=== PATIENT | female | born 1950 | race Caucasian/White ===

== ENCOUNTER 2016-09-08 08:45 | Emergency (ER) | payer MEDICAID ==
[~2016-09-08] VITALS: Ht 152.4 cm; Wt 96.0 kg
[~2016-09-08 08:45] MED LIST: ALBU1.25 NEB; ASPI-496 PO; DOXY100T PO; LISI-167 PO; PRED20TA PO
[2016-09-08 08:53] VITALS: BP 156/74
[2016-09-08 11:46] LABS: BLOOD UREA NITROGEN 15 mg/dL (7-18)
== END 2016-09-08 14:02 | disposition home or self-care (01) ==
LOC: ED 11:42
DX: I87.1 Compression of vein (principal); E88.09 Other disorders of plasma-protein metabolism, not elsewhere classified; J44.9 Chronic obstructive pulmonary disease, unspecified; Z79.52 Long term (current) use of systemic steroids
CPT/HCPCS: 36415; 71010; 80048; 82040; 83880; 85025; 93005; 93970; 99285

== ENCOUNTER 2016-09-14 09:55 | Emergency (ER) | payer MEDICAID ==
[~2016-09-14] VITALS: Ht 152.4 cm; Wt 96.0 kg
[2016-09-14] MEDS ORDERED: SODIUM CHLORIDE 0.9% 1,000ML IVBOLUS ONE (10:30)
[2016-09-14] MEDS ORDERED: SODIUM CHLORIDE FLUSH 10ML SYR IVF ONE (10:30)
[2016-09-14 11:25] LABS: BLOOD UREA NITROGEN 14 mg/dL (7-18)
[2016-09-14 11:26] LABS: DIFF TOTAL CELLS COUNTED 100 CELL DIFF
[2016-09-14 11:27] LABS: ANISOCYTOSIS 1+; VERIFY COUNTS? YES
[2016-09-14 11:28] LABS: POLYCHROMASIA 1+
[2016-09-14 11:30] LABS: ASPARTATE AMINO TRANSFERASE 75 U/L (15-37)
[2016-09-14 11:32] LABS: IS PT STATUS REG ER OR PRE ER? YES
[2016-09-14 13:34] VITALS: BP 119/72
== END 2016-09-14 13:37 | disposition home or self-care (01) ==
LOC: ED 11:33
DX: J44.1 Chronic obstructive pulmonary disease with (acute) exacerbation (principal); D72.829 Elevated white blood cell count, unspecified; I10 Essential (primary) hypertension
CPT/HCPCS: 36415; 71010; 80053; 83605; 83880; 84484; 85025; 87040; 93005; 96360; 99285; J7030

== ENCOUNTER 2017-04-12 05:41 | Emergency (ER) | payer MEDICARE, MEDICAID ==
[~2017-04-12] VITALS: Ht 152.4 cm; Wt 95.3 kg
[2017-04-12] MEDS ORDERED: FURO20TA3 PO (06:24)
[2017-04-12] MEDS ORDERED: POTA20PA25 PO (06:25)
[2017-04-12 06:57] LABS: ALBUMIN 2.8 g/dL (3.4-5.0); ANION GAP 7 mmol/L (5-15); CALCIUM 9.5 mg/dL (8.5-10.1); CHLORIDE 103 mmol/L (98-107); CREATININE 0.91 mg/dL (0.55-1.02)
[2017-04-12 07:05] LABS: BASOPHILS # (AUTO) 0.06 x10^3/uL (0-0.1); BASOPHILS % (AUTO) 0 % (0-1); EOSINOPHILS # (AUTO) 0.14 x10^3/uL (0-0.4); EOSINOPHILS % (AUTO) 1 % (1-7); LYMPHOCYTES # (AUTO) 3.88 x10^3/uL (1-3.4); LYMPHOCYTES % (AUTO) 24 % (22-44); MD NO; MEAN CORPUSCULAR HEMOGLOBIN 30.4 pg (27.0-34.8); MEAN PLATELET VOLUME 9.3 fL (7.4-10.4); MONOCYTES # (AUTO) 0.76 x10^3/uL (0.2-0.8); MONOCYTES % (AUTO) 5 % (2-9); NEUTROPHILS # (AUTO) 11.59 x10^3/uL (1.8-6.8); NEUTROPHILS % (AUTO) 71 % (42-75); PLATELET COUNT 218 x10^3/uL (130-400); RED BLOOD COUNT 5.59 x10^6/uL (3.82-5.3); RED CELL DISTRIBUTION WIDTH 16.4 % (9.6-15.2)
[2017-04-12 07:59] VITALS: BP 169/95
== END 2017-04-12 08:25 | disposition home or self-care (01) ==
LOC: ED 06:31
DX: R60.0 Localized edema (principal); I10 Essential (primary) hypertension; J44.9 Chronic obstructive pulmonary disease, unspecified
CPT/HCPCS: 36415; 80048; 82040; 85025; 93005; 99285

== ENCOUNTER 2017-09-09 23:39 | Inpatient (IN) | payer MEDICARE, MEDICAID ==
[~2017-09-09] VITALS: Ht 152.4 cm; Wt 98.5 kg
[~2017-09-09 23:39] MED LIST changes: +FURO20TA3 PO; +POTA20PA25 PO
[2017-09-10] MEDS ORDERED: IPRATROPIUM 0.5 MG/2.5 ML INHA NPPB ONE
[2017-09-10] MEDS ORDERED: ALBUTEROL SULFATE 2.5 MG/3 ML NPPB ONE
[2017-09-10] MEDS ORDERED: SODIUM CHLORIDE FLUSH 10ML SYR IVF ONE
[2017-09-10] MEDS ORDERED: ALBUTEROL/IPRATROPIUM 2.5MG/0.5MG, 3 ML ONE ×3 (00:02→16:27)
[2017-09-10 00:11] LABS: BASOPHILS # (AUTO) 0.06 x10^3/uL (0-0.1); BASOPHILS % (AUTO) 1 % (0-1); EOSINOPHILS # (AUTO) 0.34 x10^3/uL (0-0.4); EOSINOPHILS % (AUTO) 3 % (1-7); LYMPHOCYTES # (AUTO) 3.52 x10^3/uL (1-3.4); LYMPHOCYTES % (AUTO) 26 % (22-44); MD NO; MEAN CORPUSCULAR HEMOGLOBIN 30.4 pg (27.0-34.8); MEAN CORPUSCULAR HGB CONC 33.2 g/dL (32.4-35.8); MEAN CORPUSCULAR VOLUME 91.5 fL (80-100); MEAN PLATELET VOLUME 9.1 fL (7.4-10.4); MONOCYTES # (AUTO) 0.72 x10^3/uL (0.2-0.8); MONOCYTES % (AUTO) 5 % (2-9); NEUTROPHILS # (AUTO) 9.08 x10^3/uL (1.8-6.8); NEUTROPHILS % (AUTO) 66 % (42-75); PLATELET COUNT 241 x10^3/uL (130-400); RED BLOOD COUNT 5.58 x10^6/uL (3.82-5.3); RED CELL DISTRIBUTION WIDTH 15.6 % (9.6-15.2)
[2017-09-10] MEDS ORDERED: ALBUTEROL/IPRATROPIUM 2.5MG/0.5MG, 3 ML NPPB SCH ×2 (00:30→07:00)
[2017-09-10 00:50] LABS: ALANINE AMINOTRANSFERASE 28 U/L (12-78); ALBUMIN 2.8 g/dL (3.4-5.0); ANION GAP 12 mmol/L (5-15); CALCIUM 9.6 mg/dL (8.5-10.1); CHLORIDE 103 mmol/L (98-107); CREATININE 0.86 mg/dL (0.55-1.02)
[2017-09-10 00:54] LABS: ALKALINE PHOSPHATASE 143 U/L (45-117); BILIRUBIN,TOTAL 0.3 mg/dL (0.2-1.0); TOTAL PROTEIN 6.9 g/dL (6.4-8.2); TROPONIN I < 0.015 ng/mL (0.000-0.045)
[2017-09-10] MEDS ORDERED: SODIUM CHLORIDE FLUSH 10ML SYR IVF PRN (02:00)
[2017-09-10] MEDS ORDERED: ALBUTEROL/IPRATROPIUM 2.5MG/0.5MG, 3 ML NPPB PRN (02:30)
[2017-09-10] MEDS ORDERED: methylPREDNISolone SOD SUCC 125 MG/2 ML ONE (02:41)
[2017-09-10] MEDS ORDERED: ENOXAPARIN 40 MG/0.4 ML ONE (02:41)
[2017-09-10] MEDS: methylPREDNISolone SOD SUCC 125 MG/2 ML IVPush SCH ×3 (02:45→21:16)
[2017-09-10] MEDS: ENOXAPARIN 40 MG/0.4 ML SQ SCH (02:46)
[2017-09-10 02:56] VITALS: BP 131/95
[2017-09-10] MEDS ORDERED: morphine SULFATE 10 MG/ML, 1ML IVPush PRN (03:00)
[2017-09-10] MEDS ORDERED: ENALAPRILAT 1.25 MG/ML, 2ML IVPush PRN (03:00)
[2017-09-10] MEDS ORDERED: POLYETHYLENE GLYCOL 17 GM PACKET PO PRN (03:00)
[2017-09-10] MEDS ORDERED: LABETALOL 5MG/ML, 20ML IVPush PRN (03:00)
[2017-09-10] MEDS ORDERED: PROMETHAZINE 25 MG/ML, 1ML IM PRN (03:00)
[2017-09-10] MEDS ORDERED: ONDANSETRON 2MG/ML, 2ML IVPush PRN (03:00)
[2017-09-10] MEDS ORDERED: DOCUSATE 100 MG CAPSULE PO PRN (03:00)
[2017-09-10] MEDS ORDERED: BISACODYL 10 MG SUPP PR PRN (03:00)
[2017-09-10] MEDS ORDERED: OXYcodone IR 5MG TABLET PO PRN (03:00)
[2017-09-10] MEDS ORDERED: ACETAMINOPHEN 325 MG TABLET PO PRN (03:00)
[2017-09-10] MEDS ORDERED: ONDANSETRON ODT 4 MG PO PRN (03:00)
[2017-09-10] MEDS ORDERED: hydrALAzine 20 MG/ML, 1ML IVPush PRN (03:00)
[2017-09-10] MEDS ORDERED: FLUTICASONE/VILANTEROL 200-25MCG/INH INH SCH (03:00)
[2017-09-10 03:09] LABS: FREE T4 (FREE THYROXINE) 0.94 ng/dL (0.76-1.46); THYROID STIMULATING HORMONE 3.09 mIU/L (0.358-3.740)
[2017-09-10 03:53] LABS: HEMOGLOBIN A1C 6.3 % (4.2-6.3)
[2017-09-10 04:27] LABS: CULTURE INDICATED? YES; MICROSCOPIC INDICATED
[2017-09-10 07:08] LABS: TROPONIN I < 0.015 ng/mL (0.000-0.045)
[2017-09-10] MEDS: ALBUTEROL/IPRATROPIUM 2.5MG/0.5MG, 3 ML NPPB SCH ×2 (08:05→12:06)
[2017-09-10 09:17] VITALS: BP 137/83
[2017-09-10] MEDS: ASPIRIN 81 MG TABLET EC PO SCH (09:19)
[2017-09-10] MEDS: POTASSIUM CHLORIDE 20 MEQ PACKET PO SCH (09:19)
[2017-09-10] MEDS: FUROSEMIDE 40 MG TABLET PO SCH (09:19)
[2017-09-10] MEDS: LISINOPRIL 10 MG TABLET PO SCH (09:19)
[2017-09-10] MEDS: FLUTICASONE/VILANTEROL 200-25MCG/INH INH SCH (13:06)
[2017-09-10 13:23] VITALS: BP 146/82
[2017-09-10 13:47] LABS: TROPONIN I < 0.015 ng/mL (0.000-0.045)
[2017-09-10] MEDS: ALBUTEROL/IPRATROPIUM 2.5MG/0.5MG, 3 ML HHN SCH ×2 (16:50→20:00)
[2017-09-10 19:15] VITALS: BP 132/82
[2017-09-10] MEDS ORDERED: FAMOTIDINE 20 MG TABLET ONE (22:30)
[2017-09-11 01:21] VITALS: BP 116/79
[2017-09-11] MEDS: ENOXAPARIN 40 MG/0.4 ML SQ SCH (03:03)
[2017-09-11 06:01] LABS: CHLORIDE 104 mmol/L (98-107)
[2017-09-11 06:03] LABS: BASOPHILS # (AUTO) 0.03 x10^3/uL (0-0.1); BASOPHILS % (AUTO) 0 % (0-1); EOSINOPHILS % (AUTO) 0 % (1-7); LYMPHOCYTES # (AUTO) 1.16 x10^3/uL (1-3.4); LYMPHOCYTES % (AUTO) 7 % (22-44); MD NO; MEAN CORPUSCULAR HEMOGLOBIN 30.2 pg (27.0-34.8); MEAN CORPUSCULAR HGB CONC 32.9 g/dL (32.4-35.8); MEAN CORPUSCULAR VOLUME 91.7 fL (80-100); MEAN PLATELET VOLUME 9.7 fL (7.4-10.4); MONOCYTES # (AUTO) 0.25 x10^3/uL (0.2-0.8); MONOCYTES % (AUTO) 2 % (2-9); NEUTROPHILS # (AUTO) 15.51 x10^3/uL (1.8-6.8); NEUTROPHILS % (AUTO) 92 % (42-75); PLATELET COUNT 226 x10^3/uL (130-400); RED BLOOD COUNT 5.37 x10^6/uL (3.82-5.3); RED CELL DISTRIBUTION WIDTH 16.4 % (9.6-15.2)
[2017-09-11 06:10] LABS: ALANINE AMINOTRANSFERASE 29 U/L (12-78); ALBUMIN 2.5 g/dL (3.4-5.0); ALKALINE PHOSPHATASE 136 U/L (45-117); ANION GAP 8 mmol/L (5-15); BILIRUBIN,TOTAL 0.4 mg/dL (0.2-1.0); CALCIUM 8.9 mg/dL (8.5-10.1); CHOL/HDL RATIO 3.1; CHOLESTEROL, TOTAL 160 mg/dL (140-239); HDL CHOL % 32 % (28-40); HDL CHOLESTEROL (DIRECT) 51 mg/dL (40-60); LDL CHOLESTEROL,CALCULATED 85 mg/dL (54-169); LDL/HDL RATIO 1.7 (0.5-3.0); TOTAL PROTEIN 6.4 g/dL (6.4-8.2); TRIGLYCERIDES 118 mg/dL (50-200); VLDL CHOLESTEROL 24 mg/dL (0-25)
[2017-09-11] MEDS: ALBUTEROL/IPRATROPIUM 2.5MG/0.5MG, 3 ML HHN SCH ×2 (06:31→11:00)
[2017-09-11 08:15] VITALS: BP 117/77
[2017-09-11] MEDS: methylPREDNISolone SOD SUCC 125 MG/2 ML IVPush SCH (09:00)
[2017-09-11] MEDS: LISINOPRIL 10 MG TABLET PO SCH (09:00)
[2017-09-11] MEDS: FLUTICASONE/VILANTEROL 200-25MCG/INH INH SCH (09:00)
[2017-09-11] MEDS: FUROSEMIDE 40 MG TABLET PO SCH (09:00)
[2017-09-11] MEDS: ASPIRIN 81 MG TABLET EC PO SCH (09:00)
[2017-09-11] MEDS: POTASSIUM CHLORIDE 20 MEQ PACKET PO SCH (09:00)
[2017-09-11] MEDS ORDERED: PRED20TA PO (12:30)
== END 2017-09-11 14:54 | disposition home or self-care (01) | DRG 189 ==
LOC: ED 09-10 00:22 → EDIP 09-10 01:50 → 5SO 09-10 03:31 → 4WST 09-11 05:44
PROVIDERS: ADMIT Internal Medicine; ATTEND Internal Medicine
DX: J96.21 Acute and chronic respiratory failure with hypoxia (principal); E44.0 Moderate protein-calorie malnutrition; I50.9 Heart failure, unspecified; I11.0 Hypertensive heart disease with heart failure; D75.1 Secondary polycythemia; J44.1 Chronic obstructive pulmonary disease with (acute) exacerbation; Z68.41 Body mass index [BMI] 40.0-44.9, adult; J98.11 Atelectasis; I87.2 Venous insufficiency (chronic) (peripheral); F17.210 Nicotine dependence, cigarettes, uncomplicated; N64.4 Mastodynia; Z90.710 Acquired absence of both cervix and uterus; Z99.81 Dependence on supplemental oxygen; Z90.49 Acquired absence of other specified parts of digestive tract; Z79.899 Other long term (current) drug therapy
CPT/HCPCS: 36415; 71045; 80053; 80061; 81001; 83036; 83735; 83880; 84439; 84443; 84484; 85025; 87086; 93005; 93306; 94640; 99285; J1650; J7620; J2930

== ENCOUNTER 2018-04-01 15:49 | Inpatient (IN) | payer MEDICARE, MEDICAID ==
[~2018-04-01] VITALS: Ht 154.9 cm; Wt 95.0 kg
[2018-04-01] MEDS ORDERED: SODIUM CHLORIDE FLUSH 10ML SYR IVF ONE (16:00)
[2018-04-01] MEDS ORDERED: methylPREDNISolone SOD SUCC 125 MG/2 ML IVP ONE (16:00)
[2018-04-01] MEDS ORDERED: methylPREDNISolone SOD SUCC 125 MG/2 ML ONE (16:09)
[2018-04-01] MEDS ORDERED: SODIUM CHLORIDE 0.9% 1,000 ML IV ONE (16:17)
[2018-04-01] MEDS ORDERED: SODIUM CHLORIDE 0.9% 1,000ML IVBOLUS ONE (16:30)
[2018-04-01] MEDS ORDERED: BUDE10.2 INH (16:34)
[2018-04-01] MEDS ORDERED: IBUPROFEN 200 MG TABLET ONE (16:41)
[2018-04-01 16:53] LABS: MEAN CORPUSCULAR HEMOGLOBIN 31.2 pg (27.0-34.8); MEAN CORPUSCULAR HGB CONC 33.7 g/dL (32.4-35.8); MEAN CORPUSCULAR VOLUME 92.8 fL (80-100); MEAN PLATELET VOLUME 9.7 fL (7.4-10.4); PLATELET COUNT 292 x10^3/uL (130-400); RED BLOOD COUNT 5.25 x10^6/uL (3.82-5.3); RED CELL DISTRIBUTION WIDTH 14.5 % (9.6-15.2)
[2018-04-01] MEDS ORDERED: AZITHROMYCIN 500 MG in SODIUM CHLORIDE 0.9% 250 ML IVPB ONE (17:00)
[2018-04-01] MEDS ORDERED: CEFTRIAXONE 1,000 MG in SODIUM CHLORIDE 0.9% 50 ML IVPB ONE (17:00)
[2018-04-01] MEDS ORDERED: IBUPROFEN 200 MG TABLET PO ONE (17:00)
[2018-04-01 17:03] LABS: ALANINE AMINOTRANSFERASE 30 U/L (12-78); ALBUMIN 2.3 g/dL (3.4-5.0); ANION GAP 14 mmol/L (5-15); CALCIUM 8.6 mg/dL (8.5-10.1); CHLORIDE 96 mmol/L (98-107); CREATININE 0.91 mg/dL (0.55-1.02)
[2018-04-01 17:06] LABS: INTERNATIONAL NORMALIZED RATIO 1.08 (0.93-1.1); PROTHROMBIN TIME 11.4 Seconds (9.6-11.5)
[2018-04-01] MEDS ORDERED: CEFTRIAXONE PMX 1GM/50ML 50 ML ONE (17:06)
[2018-04-01 17:07] LABS: ALKALINE PHOSPHATASE 182 U/L (45-117); BILIRUBIN,TOTAL 0.5 mg/dL (0.2-1.0); TOTAL PROTEIN 6.7 g/dL (6.4-8.2); TROPONIN I < 0.015 ng/mL (0.000-0.045)
[2018-04-01 17:10] LABS: MD YES
[2018-04-01 17:12] LABS: BAND#(MANUAL) 0.58 x10^3/uL; BANDS%(MANUAL) 3 % (0-7); BASOS#(MANUAL) 0.38 x10^3/uL (0-0.1); BASOS% (MANUAL) 2 % (0-1); LYMPHS% (MANUAL) 12 % (22-44); MONOS#(MANUAL) 0.77 x10^3/uL (0.3-2.7); MONOS% (MANUAL) 4 % (2-9); SEG#(MANUAL) 15.17 x10^3/uL (1.8-6.8); SEGS% (MANUAL) 79 % (42-75)
[2018-04-01 17:14] LABS: <PLATELET ESTIMATE> ADEQUATE; LARGE PLATELETS 1+; POLYCHROMASIA 1+; TOXIC GRAN 1+
[2018-04-01 17:28] LABS: RAPID INFLUENZA A Negative (Negative); RAPID INFLUENZA B Negative (Negative)
[2018-04-01] MEDS ORDERED: ACETAMINOPHEN 325 MG TABLET PO PRN (17:30)
[2018-04-01] MEDS ORDERED: LORazepam 2 MG/ML, 1ML IV PRN ×4 (17:30)
[2018-04-01] MEDS ORDERED: LORazepam 1MG TABLET PO PRN ×2 (17:30)
[2018-04-01] MEDS ORDERED: LORazepam 0.5MG TABLET PO PRN (17:30)
[2018-04-01] MEDS ORDERED: ONDANSETRON 2MG/ML, 2ML IV PRN (17:30)
[2018-04-01] MEDS ORDERED: DOCUSATE 100 MG CAPSULE PO PRN (18:00)
[2018-04-01] MEDS ORDERED: PHARMACY MAY ADJ FOR RENAL FX MC PRN (18:00)
[2018-04-01 18:36] LABS: HEMOGLOBIN A1C 5.8 % (4.2-6.3)
[2018-04-01 19:31] VITALS: BP 95/62
[2018-04-01] MEDS: POTASSIUM CHLORIDE 20 MEQ TAB.ER.PRT PO SCH (19:56)
[2018-04-01] MEDS: THIAMINE 100MG TABLET PO SCH (19:56)
[2018-04-01] MEDS: FOLIC ACID 1 MG TABLET PO SCH (19:56)
[2018-04-01] MEDS: GUAIFENESIN 200 MG TABLET PO SCH ×2 (19:56→21:00)
[2018-04-01] MEDS: SODIUM CHLORIDE 0.9% 1,000 ML IV SCH (19:57)
[2018-04-01] MEDS: ENOXAPARIN 40 MG/0.4 ML SQ SCH (19:57)
[2018-04-01] MEDS: BUDESONIDE 0.5 MG/2 ML INHA NPPB SCH (20:38)
[2018-04-01] MEDS: ALBUTEROL SULFATE 2.5MG/0.5ML NPPB SCH (20:38)
[2018-04-01] MEDS ORDERED: TEMPLATE NON-FORMULARY MED. (Budesonide/Formoterol Fumarate (Symbicort 160-4.5 Mcg Inhaler INH SCH (21:00)
[2018-04-02] MEDS: ALBUTEROL SULFATE 2.5MG/0.5ML NPPB SCH ×4 (01:00→19:55)
[2018-04-02 02:44] VITALS: BP 112/88
[2018-04-02] MEDS ORDERED: ALBUTEROL SULFATE 2.5 MG/3 ML ONE (02:53)
[2018-04-02] MEDS ORDERED: DOXYCYCLINE 100 MG in DEXTROSE 5% 250 ML IV SCH (04:00)
[2018-04-02 04:18] LABS: ANION GAP 8 mmol/L (5-15); CALCIUM 8.4 mg/dL (8.5-10.1); CHLORIDE 99 mmol/L (98-107)
[2018-04-02 04:21] LABS: CREATININE 1.14 mg/dL (0.55-1.02)
[2018-04-02 04:22] LABS: MEAN CORPUSCULAR HEMOGLOBIN 31.7 pg (27.0-34.8); MEAN CORPUSCULAR HGB CONC 33.7 g/dL (32.4-35.8); MEAN CORPUSCULAR VOLUME 94.1 fL (80-100); MEAN PLATELET VOLUME 9.7 fL (7.4-10.4); PLATELET COUNT 256 x10^3/uL (130-400); RED BLOOD COUNT 4.77 x10^6/uL (3.82-5.3); RED CELL DISTRIBUTION WIDTH 14.9 % (9.6-15.2)
[2018-04-02] MEDS: GUAIFENESIN 200 MG TABLET PO SCH ×4 (05:18→21:57)
[2018-04-02] MEDS: SODIUM CHLORIDE 0.9% 1,000 ML IV SCH (05:18)
[2018-04-02] MEDS: DOXYCYCLINE 100 MG in DEXTROSE 5% 250 ML IV SCH ×2 (05:18→17:22)
[2018-04-02 05:45] LABS: MD YES
[2018-04-02 05:50] LABS: BANDS%(MANUAL) 4 % (0-7); LYMPH#(MANUAL) 1.99 x10^3/uL (1-3.4); LYMPHS% (MANUAL) 8 % (22-44); MONOS#(MANUAL) 1.25 x10^3/uL (0.3-2.7); MONOS% (MANUAL) 5 % (2-9); SEG#(MANUAL) 20.67 x10^3/uL (1.8-6.8); SEGS% (MANUAL) 83 % (42-75)
[2018-04-02 05:53] LABS: <PLATELET ESTIMATE> ADEQUATE; LARGE PLATELETS 1+; POLYCHROMASIA 1+
[2018-04-02 07:02] VITALS: BP 107/72
[2018-04-02] MEDS: NICOTINE 21 MG/24 HR PATCH.TD24 TD SCH (07:37)
[2018-04-02] MEDS: POTASSIUM CHLORIDE 20 MEQ TAB.ER.PRT PO SCH (07:38)
[2018-04-02] MEDS: MULTIVITAMINS/MINERALS TABLET PO SCH (07:38)
[2018-04-02] MEDS: FOLIC ACID 1 MG TABLET PO SCH (07:38)
[2018-04-02] MEDS: THIAMINE 100MG TABLET PO SCH (07:38)
[2018-04-02] MEDS: BUDESONIDE 0.5 MG/2 ML INHA NPPB SCH ×2 (08:45→19:55)
[2018-04-02] MEDS ORDERED: LISINOPRIL 10 MG TABLET PO SCH (09:00)
[2018-04-02 09:45] LABS: CLOSTRIDIUM DIFFICILE ANTIGEN POSITIVE; CLOSTRIDIUM DIFFICILE TOXIN NEGATIVE (Negative)
[2018-04-02 13:40] VITALS: BP 113/70
[2018-04-02] MEDS ORDERED: POTASSIUM CHLORIDE 20 MEQ TAB.ER.PRT PO ONE (16:30)
[2018-04-02] MEDS ORDERED: MAGNESIUM SULFATE 1 GM in SODIUM CHLORIDE 0.9% 50 ML IV ONE (16:30)
[2018-04-02] MEDS ORDERED: CEFTRIAXONE PMX 1GM/50ML 50 ML IV SCH (17:00)
[2018-04-02 20:00] VITALS: BP 108/62
[2018-04-02] MEDS: ENOXAPARIN 40 MG/0.4 ML SQ SCH (21:57)
[2018-04-03 02:00] VITALS: BP 109/75
[2018-04-03] MEDS: ALBUTEROL SULFATE 2.5MG/0.5ML NPPB SCH ×2 (02:51→08:49)
[2018-04-03 05:09] LABS: MEAN CORPUSCULAR HEMOGLOBIN 31.5 pg (27.0-34.8); MEAN CORPUSCULAR HGB CONC 33.4 g/dL (32.4-35.8); MEAN CORPUSCULAR VOLUME 94.3 fL (80-100); MEAN PLATELET VOLUME 9.4 fL (7.4-10.4); PLATELET COUNT 275 x10^3/uL (130-400)
[2018-04-03 05:20] LABS: ANION GAP 5 mmol/L (5-15); CALCIUM 8.2 mg/dL (8.5-10.1); CHLORIDE 107 mmol/L (98-107)
[2018-04-03] MEDS: DOXYCYCLINE 100 MG in DEXTROSE 5% 250 ML IV SCH (05:32)
[2018-04-03] MEDS: GUAIFENESIN 200 MG TABLET PO SCH ×2 (05:32→11:03)
[2018-04-03 05:41] LABS: BASOPHILS # (AUTO) 0.09 x10^3/uL (0-0.1); BASOPHILS % (AUTO) 1 % (0-1); EOSINOPHILS % (AUTO) 0 % (1-7); LYMPHOCYTES # (AUTO) 1.49 x10^3/uL (1-3.4); LYMPHOCYTES % (AUTO) 9 % (22-44); MD SCAN; MONOCYTES # (AUTO) 0.65 x10^3/uL (0.2-0.8); MONOCYTES % (AUTO) 4 % (2-9); NEUTROPHILS # (AUTO) 15.32 x10^3/uL (1.8-6.8); NEUTROPHILS % (AUTO) 87 % (42-75)
[2018-04-03 07:08] VITALS: BP 150/81
[2018-04-03] MEDS: THIAMINE 100MG TABLET PO SCH (08:45)
[2018-04-03] MEDS: MULTIVITAMINS/MINERALS TABLET PO SCH (08:45)
[2018-04-03] MEDS: FOLIC ACID 1 MG TABLET PO SCH (08:45)
[2018-04-03] MEDS: NICOTINE 21 MG/24 HR PATCH.TD24 TD SCH (08:46)
[2018-04-03] MEDS: BUDESONIDE 0.5 MG/2 ML INHA NPPB SCH (08:49)
[2018-04-03] MEDS ORDERED: THIA100T67 PO (14:10)
[2018-04-03] MEDS ORDERED: FOLI-17 PO (14:10)
[2018-04-03] MEDS ORDERED: DOXY100T51 PO (14:10)
[2018-04-03] MEDS ORDERED: GUAI200T3 PO (14:10)
[2018-04-03] MEDS ORDERED: ALBUTEROL SULFATE 2.5MG/0.5ML NPPB SCH (21:00)
== END 2018-04-03 15:44 | disposition home or self-care (01) | DRG 871 ==
LOC: ED 16:04 → EDIP 17:26 → 4WST 18:46
PROVIDERS: ADMIT Internal Medicine; ATTEND Internal Medicine
DX: A41.9 Sepsis, unspecified organism (principal); J15.9 Unspecified bacterial pneumonia; J96.21 Acute and chronic respiratory failure with hypoxia; E44.0 Moderate protein-calorie malnutrition; J44.0 Chronic obstructive pulmonary disease with (acute) lower respiratory infection; J44.1 Chronic obstructive pulmonary disease with (acute) exacerbation; Z68.39 Body mass index [BMI] 39.0-39.9, adult; E86.0 Dehydration; E87.6 Hypokalemia; F10.10 Alcohol abuse, uncomplicated; Y90.9 Presence of alcohol in blood, level not specified; F41.1 Generalized anxiety disorder; I11.0 Hypertensive heart disease with heart failure; I50.9 Heart failure, unspecified; F17.200 Nicotine dependence, unspecified, uncomplicated; Z71.6 Tobacco abuse counseling; Z99.81 Dependence on supplemental oxygen; Z90.710 Acquired absence of both cervix and uterus; Z90.49 Acquired absence of other specified parts of digestive tract
CPT/HCPCS: 36415; 71045; 80048; 80053; 83036; 83605; 83735; 83880; 84100; 84145; 84484; 85025; 85610; 85730; 86140; 87040; 87070; 87077; 87186; 87205; 87324; 87400; 87493; 93005; 94640; 96365; 96368; 96375; G0378; J0456; J0696; J1650; J3475; J7060; J7611; J7626; J2930; J7030; J7050; J7512

== ENCOUNTER → 2018-08-24 | Outpatient (CLI) | payer MEDICARE, MEDICAID ==
[~2018-08-24] MED LIST changes: +BUDE10.2 INH; +DOXY100T51 PO; +FOLI-17 PO; +GUAI200T3 PO; +THIA100T67 PO
== END | disposition home or self-care (01) ==
LOC: CFH 13:27
PROVIDERS: ATTEND Nurse Practitioner Family
DX: J43.2 Centrilobular emphysema (principal); R09.02 Hypoxemia
CPT/HCPCS: 71250